=== PATIENT | female | born 1950 | race Caucasian/White ===

== ENCOUNTER 2017-03-30 21:23 | Inpatient (IN) | payer MEDICARE ==
[~2017-03-30] VITALS: Ht 165.1 cm; Wt 47.6 kg
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
[2017-03-30] MEDS ORDERED: ROPI0.253 PO (23:06)
[2017-03-30] MEDS ORDERED: GABA800T2 PO (23:06)
[2017-03-30] MEDS ORDERED: LISI2.5T2 PO (23:06)
[2017-03-30] MEDS ORDERED: ALEN70TA45 PO (23:06)
[2017-03-30] MEDS ORDERED: IBUP-1955 PO (23:06)
[2017-03-30] MEDS ORDERED: CALC1TAB4 (23:06)
[2017-03-30] MEDS ORDERED: HYDR-3658 PO (23:06)
[2017-03-30] MEDS ORDERED: RANI150T8 PO (23:06)
[2017-03-30] MEDS ORDERED: LORAZEPAM 0.5 MG TABLET PO PRN (23:30)
[2017-03-30] MEDS ORDERED: MAG HYDROX/AL HYDROX/SIMETH 30 ML UDC PO PRN (23:30)
[2017-03-30] MEDS ORDERED: TEMAZEPAM 7.5 MG CAPSULE PO PRN (23:30)
[2017-03-30] MEDS ORDERED: ACETAMINOPHEN 325 MG TABLET PO PRN (23:30)
[2017-03-30] MEDS ORDERED: MAGNESIUM HYDROXIDE 30 ML UDC PO PRN (23:30)
[2017-03-31 01:21] VITALS: BP 138/73
--- NOTE | 2017-03-31 06:42 | NUR ---
GPS RN NOTE: LEFT MESSAGE TO LALITO FRANKLIN REGARDING THE ADMISSION OF THE PATIENT
[2017-03-31 07:24] LABS: ALBUMIN 3.7 g/dL (3.4-5.0); BILIRUBIN,TOTAL 0.7 mg/dL (0.2-1.0); CALCIUM, SERUM 8.8 mg/dL (8.5-10.1); CREATININE 0.7 mg/dL (0.6-1.3); POTASSIUM 3.4 mmol/L (3.5-5.1); TOTAL PROTEIN, SERUM 6.8 g/dL (6.4-8.2)
[2017-03-31] MEDS ORDERED: ALENDRONATE 70 MG TABLET PO SCH (07:30)
[2017-03-31 08:25] VITALS: BP 142/85
[2017-03-31] MEDS: LISINOPRIL (5MG) 5 MG TABLET PO SCH (09:59)
--- NOTE | 2017-03-31 10:00 | NUR ---
GPS/RN-NOTES PATIENT WAS SEEN BY DR. WINKLER AND AWARE AND STATED" WILL LOOK PATIENT MEDICATIONS AND LABS RESULTS".
[2017-03-31] MEDS ORDERED: POTASSIUM CHLORIDE 20 MEQ TAB.PRT.SR PO SCH (10:30)
[2017-03-31] MEDS: LORAZEPAM 0.5 MG TABLET PO SCH ×4 (11:01→21:22)
[2017-03-31] MEDS: ESCITALOPRAM OXALATE (10 MG) 10 MG TABLET PO SCH (12:09)
[2017-03-31] MEDS: QUETIAPINE FUMARATE 25 MG TABLET PO SCH ×2 (12:09→17:19)
[2017-03-31 16:00] VITALS: BP 137/78
[2017-03-31] MEDS: HYDROCODONE/APAP 10/325MG 1 EA TABLET PO PRN (16:31)
--- NOTE | 2017-03-31 16:31 | NUR ---
GPS/RN-NOTES PATIENT C/O 12/30 BOTH LEGS. NORCO 10MG/325MG 1 TAB. P.O GIVEN PRN ORDER. WILL CONT. MONITORING.
[2017-03-31 20:17] VITALS: BP 117/69
[2017-04-01] MEDS: LORAZEPAM 0.5 MG TABLET PO SCH ×6 (01:00→21:35)
--- NOTE | 2017-04-01 01:00 | NUR ---
RN GPS NOTED ATIVAN 0.5 MG TAB PO DUE AT 0100 NOT ADMINISTERED, PATIENT REFUSED ,ASLEEP AT THIS TIME.
--- NOTE | 2017-04-01 06:21 | NUR ---
GPS RN NOTES PT. COMFORTABLY RESTING AT THIS TIME, NO ACUTE DISTRESS NOTED .PT. CALM COOPERATIVE, ENDORSE TO NEXT SHIFT FOR CONTINUTY OF CARE .
[2017-04-01 07:06] LABS: BASOPHILS % (AUTO) 0.6 % (0.0-2.0); EOSINOPHILS # (AUTO) 0.4 /CMM (0.0-0.7); EOSINOPHILS % (AUTO) 7.4 % (0.0-6.0); HEMATOCRIT 38 % (33-45); HEMOGLOBIN 13.1 g/dL (11.5-14.8); LYMPHOCYTES # (AUTO) 1.2 /CMM (0.8-4.8); LYMPHOCYTES % (AUTO) 20.6 % (20.0-44.0); MEAN CORPUSCULAR HEMOGLOBIN 34 PG (26.0-33.0); MEAN CORPUSCULAR HGB CONC 34 g/dl (31.0-36.0); MEAN CORPUSCULAR VOLUME 100 fL (82-100); MONOCYTES # (AUTO) 0.3 /CMM (0.1-1.30); MONOCYTES % (AUTO) 4.9 % (2.0-12.0); NEUTROPHILS # (AUTO) 3.8 /CMM (1.8-8.9); NEUTROPHILS % (AUTO) 66.5 % (43.0-81.0); PLATELET COUNT (AUTO) 189 /CMM (150-450); RDW COEFFICIENT OF VARIATION 14.5 (11.5-15.0); RED BLOOD CELL COUNT(AUTO) 3.82 MIL/uL (4.0-5.2); WHITE BLOOD COUNT (AUTO) 5.7 K/uL (4.3-11.0)
[2017-04-01 07:27] LABS: ALBUMIN 3.1 g/dL (3.4-5.0); BILIRUBIN,TOTAL 0.6 mg/dL (0.2-1.0); CALCIUM, SERUM 8.4 mg/dL (8.5-10.1); CREATININE 0.5 mg/dL (0.6-1.3); MAGNESIUM 1.5 mg/dL (1.8-2.4); POTASSIUM 3.9 mmol/L (3.5-5.1)
[2017-04-01 07:35] LABS: THYROID STIMULATING HORMONE 1.404 uIU/mL (0.358-3.74)
[2017-04-01 08:14] VITALS: BP 145/90
[2017-04-01] MEDS: ESCITALOPRAM OXALATE (10 MG) 10 MG TABLET PO SCH (09:19)
[2017-04-01] MEDS: LISINOPRIL (5MG) 5 MG TABLET PO SCH (09:20)
[2017-04-01] MEDS: QUETIAPINE FUMARATE 25 MG TABLET PO SCH ×2 (09:20→16:44)
[2017-04-01] MEDS ORDERED: MAGNESIUM OXIDE 400 MG TABLET PO ONE (11:30)
[2017-04-01 16:17] VITALS: BP 139/83
[2017-04-01] MEDS ORDERED: Z GUARD REMEDY 4 OZ OINT TP PRN (17:30)
[2017-04-01 21:02] VITALS: BP 147/87
[2017-04-02] MEDS: LORAZEPAM 0.5 MG TABLET PO SCH ×6 (01:00→21:30)
[2017-04-02 05:43] VITALS: BP 147/83
[2017-04-02 08:00] VITALS: BP 125/77
[2017-04-02] MEDS: QUETIAPINE FUMARATE 25 MG TABLET PO SCH ×2 (09:07→16:51)
[2017-04-02] MEDS: ESCITALOPRAM OXALATE (10 MG) 10 MG TABLET PO SCH (09:07)
[2017-04-02] MEDS: LISINOPRIL (5MG) 5 MG TABLET PO SCH (09:07)
--- NOTE | 2017-04-02 11:16 | NUR ---
GPS/RN-NOTES PATIENT WAS SEEN BY DR. KEARNS TODAY AND MADE AWARE OF PATIENT LABS RESULTS WITH VERBAL ORDER OF MAGNESIUM OXIDE 400MG P.O BID. NOTED AND CARRIED OUT.
--- NOTE | 2017-04-02 15:32 | NUR ---
Initial Discharge Note: Patient lives at [address] [place] [id number] / [phone] with her and wishes to return home upon discharge. SW called patient's , Eduardo Trujillo [phone], who stated that he feels comfortable with his returning home, but that he will be unable to pick her up as his car is currently broken down. SW will provide patient with alcohol abuse resources and will work to arrange a safe and proper discharge.
[2017-04-02 16:00] VITALS: BP 136/73
[2017-04-02] MEDS: MAGNESIUM OXIDE 400 MG TABLET PO SCH (16:51)
[2017-04-02 20:19] VITALS: BP 108/70
[2017-04-02] MEDS: HYDROCODONE/APAP 10/325MG 1 EA TABLET PO PRN (20:21)
[2017-04-02 21:34] VITALS: BP 119/69
[2017-04-03] MEDS: LORAZEPAM 0.5 MG TABLET PO SCH ×3 (01:00→09:15)
[2017-04-03 08:00] VITALS: BP 123/70
[2017-04-03] MEDS: QUETIAPINE FUMARATE 25 MG TABLET PO SCH ×2 (09:15→17:20)
[2017-04-03] MEDS: ESCITALOPRAM OXALATE (10 MG) 10 MG TABLET PO SCH (09:15)
[2017-04-03] MEDS: MAGNESIUM OXIDE 400 MG TABLET PO SCH ×2 (09:15→17:20)
[2017-04-03] MEDS: LISINOPRIL (5MG) 5 MG TABLET PO SCH (09:17)
[2017-04-03 16:00] VITALS: BP 115/64
[2017-04-03 20:18] VITALS: BP 101/57
[2017-04-03] MEDS: HYDROCODONE/APAP 10/325MG 1 EA TABLET PO PRN (21:02)
--- NOTE | 2017-04-03 21:04 | NUR ---
GPS/RN-NOTES PATIENT C/O 8 BOTH LEGS. NORCO 10MG/325MG 1 TAB. P.O GIVEN PRN ORDER. WILL CONT. MONITORING.
[2017-04-04 08:29] VITALS: BP 112/61
[2017-04-04] MEDS: ESCITALOPRAM OXALATE (10 MG) 10 MG TABLET PO SCH (08:29)
[2017-04-04] MEDS: QUETIAPINE FUMARATE 25 MG TABLET PO SCH (08:29)
[2017-04-04 08:30] VITALS: BP 112/61
[2017-04-04] MEDS: LISINOPRIL (5MG) 5 MG TABLET PO SCH (08:30)
[2017-04-04] MEDS: MAGNESIUM OXIDE 400 MG TABLET PO SCH (08:30)
[2017-04-04] MEDS: HYDROCODONE/APAP 10/325MG 1 EA TABLET PO PRN (08:41)
--- NOTE | 2017-04-04 08:42 | NUR ---
GPS/RN-NOTES PATIENT C/O 12/30 RIGHT HIP . NORCO 10MG/325MG 1 TAB. P.O GIVEN PRN ORDER. WILL CONT. MONITORING.
--- NOTE | 2017-04-04 10:59 | NUR ---
PT. WITH CERTIFICATION REVIEW HEARING REPRESENTED BY HEARING REFEREE, ADVOCATE AND HOSPITAL STAFF. THE PATIENT, AFTER TALKING WITH THE ADVOCATE, HAS DECIDED TO : BE PRESENT AT THE CERTIFICATION REVIEW HEARING. AFTER CONSIDERING ALL THE EVIDENCE PRESENTED, THE HEARING REFEREE FINDS THAT: THERE IS NOT A PROBABLE CAUSE TO BELIEVE THAT THE PERSON, A RESULT OF A MENTAL DISORDER IS A DANGER TO SELF, A DANGER TO OTHERS OR GRAVELY DISABLED. THE PATIENT MUST BE RELEASED OR REMAIN AT THE FACILITY ON A VOLUNTARY BASIS.
--- NOTE | 2017-04-04 11:15 | NUR ---
DR. SMITH GAVE AN ORDER TO D/C PT. TO HOME TO DAY AND TO FOLLOW UP WITH PSYCH AND MEDICAL DOCTORS.
--- NOTE | 2017-04-04 12:37 | NUR ---
Discharge Note: Patient will be discharged home to [address] [place] [address] / [phone] via taxi transportation arranged through [employer] [phone]. SW called and left a voicemail for patients , Eduardo Trujillo [phone], regarding the discharge. Patient was alert and oriented. Patient stated she felt safe going home in a taxi. Patient denied suicidal and homicidal ideation. Patient denied visual and auditory hallucinations. 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 Tirado at [facility] [address] [place] [address] on April 06 at 1:40pm to discuss sobriety. Patient was also referred to [facility] [address] [facility] , . Patient was provided referrals to [facility] [address] / and was encouraged to present at 9:00am on April 05 for intake screening. Patient was provided with an Alcoholics Anonymous meeting at [facility] Room 5 [address] [facility] on April 09 at 7pm. Patient was also provided with [facility] national helpline [phone].
--- NOTE | 2017-04-04 13:58 | NUR ---
GPS INFORMATION TECHNOLOGY ASSISTANT NOTE: PT DISCHARGE HOME [address] [place] [address] VIA TAXI. PT NOTIFIED PT DC IN STABLE CONDITION NO S/S DISTRESS NOTED PATIENT DENIES SUICIDAL AND HOMICIDAL IDEATION . EXIT CARE DONE ,PRINTED, SIGN AND GIVEN TO PT. DR SMITH NOTIFIED WITH RX GIVEN AND EXPLAIN TO PT. ALL BELONGINGS RETURNED SKIN CHECKED PICTURE PLACED IN THE CHART.
== END 2017-04-04 13:45 | disposition home or self-care (01) | DRG 885 ==
LOC: GPS 21:23
PROVIDERS: ADMIT Psychiatry & Neurology Psychiatry; ATTEND Psychiatry & Neurology Psychiatry
DX: F33.0 Major depressive disorder, recurrent, mild (principal); G62.9 Polyneuropathy, unspecified; F29 Unspecified psychosis not due to a substance or known physiological condition; F10.20 Alcohol dependence, uncomplicated; Z73.6 Limitation of activities due to disability; M81.0 Age-related osteoporosis without current pathological fracture; F41.9 Anxiety disorder, unspecified; I10 Essential (primary) hypertension; Z79.899 Other long term (current) drug therapy; Z87.891 Personal history of nicotine dependence; Z98.82 Breast implant status
CPT/HCPCS: 36415; 80053-TC; 80061-TC; 83735-TC; 84100-TC; 84443-TC; 85025-TC; 87081-TC